=== PATIENT | male | born 2000 | race Caucasian/White ===

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

== ENCOUNTER 2023-02-13 20:38 | Emergency (ER) | payer BC ==
[2023-02-13] MEDS ORDERED: dexAMETHasone 2 MG TAB PO STA (21:06)
[2023-02-13] MEDS ORDERED: LIDOCAINE 2% GLYDO JELLY 11 ML APPL MUCOUS MEM ONE (21:15)
--- NOTE | 2023-02-13 21:33 | XR ---
EXAMINATION TYPE: XR chest 2V DATE OF EXAM: 02/13/2023 9:19 PM CLINICAL INDICATION:Male, 22 years old with history of cough; [facility] COMPARISON: Chest radiographs from 10/25/2016 TECHNIQUE: XR chest 2V Frontal and lateral views of the chest. FINDINGS: Lungs/Pleura: There is no evidence of pleural effusion, focal consolidation, or pneumothorax. Pulmonary vascularity: Unremarkable. Heart/mediastinum: Cardiomediastinal silhouette is unremarkable. Musculoskeletal: No acute osseous pathology. IMPRESSION: No acute cardiopulmonary disease/process.
[2023-02-13 22:38] VITALS: BP 116/73; PULSE 74; RESP 16; TEMP 97.7
--- NOTE | 2023-02-13 22:58 | ED ---
General Adult HPI - General Chief complaint: Recheck/Abnormal Lab/Rx Stated complaint: Sore throat Time Seen by Provider: 02/13/23 20:46 Source: patient, RN notes reviewed Mode of arrival: ambulatory Limitations: no limitations - History of Present Illness Initial comments: [id number] male with no significant past medical history presents the emergency department with throat problem. Patient reports that he had sudden onset sensation that his throat was "closing. "He reports that he sleeps frequently throughout the day and his so has been air drier than normal. He has not taken anything. Denies history of asthma. Denies any fevers, cough, headache, chills, chest pain, shortness of breath. - Related Data Previous Rx's Medication Instructions Recorded methylPREDNISolone Dose Pack 4 mg PO DIRECTED #21 tab 02/13/23 [Medrol Dose Pack] Allergies Allergy/AdvReac Type Severity Reaction Status Date / Time No Known Allergies Allergy Verified 10/25/16 15:48 Review of Systems ROS Statement: Those systems with pertinent positive or pertinent negative responses have been documented in the HPI. ROS Other: All systems not noted in ROS Statement are negative. Past Medical History Past Medical History: No Reported History History of Any Multi-Drug Resistant Organisms: None Reported Past Surgical History: No Surgical Hx Reported Past Psychological History: No Psychological Hx Reported Smoking Status: Current every day smoker, Vaper Past Alcohol Use History: Rare Past Drug Use History: None Reported General Exam Limitations: no limitations Course Vital Signs 02/13/23 20:40 Temperature 98.4 F Pulse Rate 72 Respiratory 18 Rate O2 Sat by Pulse 98 Oximetry - Reevaluation(s) Reevaluation #1: 02/13/23 22:10 Pt reevaluated. Patient resting comfortably. No acute distress. Medical Decision Making - Medical Decision Making Was pt. sent in by a medical professional or institution (, PA, AUDIT MACHINE OPERATOR, urgent care, hospital, or residential...) When possible be specific @ -[No] Did you speak to anyone other than the patient for history (EMS, parent, family, police, friend...)? What history was obtained from this source @ -[No] Did you review nursing and triage notes (agree or disagree)? Why? @ -[I reviewed and agree with nursing and triage notes] Were old charts reviewed (outside hosp., previous admission, EMS record, old EKG, old radiological studies, urgent care reports/EKG's, residential records)? Report findings @ -[No old charts were reviewed] Differential Diagnosis (chest pain, altered mental status, abdominal pain women, abdominal pain men, vaginal bleeding, weakness, fever, dyspnea, syncope, headache, dizziness, GI bleed, back pain, seizure, CVA, palpatations, mental health, musculoskeletal)? @ -[not applicable] EKG interpreted by me (3pts min.). @ -[As above] X-rays interpreted by me (1pt min.). @ -Chest x-ray does not reveal any intrapleural process or cardiomegaly CT interpreted by me (1pt min.). @ -[None done] U/S interpreted by me (1pt. min.). @ -[None done] What testing was considered but not performed or refused? (CT, X-rays, U/S, labs)? Why? @ -[None] What meds were considered but not given or refused? Why? @ -[None] Did you discuss the management of the patient with other professionals (professionals i.e. , PA, AUDIT MACHINE OPERATOR, lab, RT, psych nurse, elementary school social worker, target setter, teacher, environmental protection officer, case resource manager)? Give summary @ -[No] Was smoking cessation discussed for >3mins.? @ -[No] Was critical care preformed (if so, how long)? @ -[No] Were there social determinants of health that impacted care today? How? (Homelessness, low income, unemployed, alcoholism, drug addiction, transportation, low edu. Level, literacy, decrease access to med. care, detention, rehab)? @ -[No] Was there de-escalation of care discussed even if they declined (Discuss DNR or withdrawal of care, Hospice)? DNR status @ -[No] What co-morbidities impacted this encounter? (DM, HTN, Smoking, COPD, CAD, Cancer, CVA, ARF, Chemo, Hep., AIDS, mental health diagnosis, sleep apnea, morbid obesity)? @ -[None] Was patient admitted / discharged? Hospital course, mention meds given and route, prescriptions, significant lab abnormalities, going to OR and other pertinent info. @ -Discharged. This is a 22-year-old female who presents to the emergency department with throat problem. Patient had a history and physical exam performed. Vital signs are stable. Patient oxygen saturation 99% on room air. Patient is not conversationally dyspneic. Able to speak in complete sentences. No stridor. No drooling. Patient resting comfortably. Patient was provided Decadron and collided WITH symptomatic improvement. Chest x-ray negative. I discussed results in detail the patient verbalized understanding all questions were addressed. He is provided Medrol Dosepak. Return precautions were discussed at length. Patient discharged in stable condition. Case discussed Dr. Jarvis [facility] who agrees with plan of care Undiagnosed new problem with uncertain prognosis? @ -[No] Drug Therapy requiring intensive monitoring for toxicity (Heparin, Nitro, Insulin, Cardizem)? @ -[No] Were any procedures done? @ -[No] Diagnosis/symptom? @ -Throat problem Acute, or Chronic, or Acute on Chronic? @ -Acute Uncomplicated (without systemic symptoms) or Complicated (systemic symptoms)? @ -Uncomplicated Side effects of treatment? @ -[No] Exacerbation, Progression, or Severe Exacerbation? @ -[No] Poses a threat to life or bodily function? How? (Chest pain, [place], [place], pneumonia, PE, COPD, DKA, ARF, appy, cholecystitis, CVA, Diverticulitis, Homicidal, Suicidal, threat to staff... and all critical care pts) @ -Low likelihood Disposition Clinical Impression: Throat discomfort Disposition: HOME SELF-CARE Condition: Stable Additional Instructions: These monitor symptoms closely Please return to the nearest emergency department if symptoms worsen or persist Prescriptions: methylPREDNISolone Dose Pack [Medrol Dose Pack] 4 mg PO DIRECTED #21 tab Is patient prescribed a controlled substance at d/c from ED?: No Referrals: Anibal Park MD [Primary Care Provider] - 1-2 days Time of Disposition: 22:12
== END 2023-02-13 22:30 | disposition home or self-care (01) ==
LOC: EC 20:38
DX: R07.0 Pain in throat (principal); F17.290 Nicotine dependence, other tobacco product, uncomplicated
CPT/HCPCS: 71046; 99283; J8540